=== PATIENT | female | born 1960 | race Caucasian/White ===

== ENCOUNTER 2016-10-10 14:45 | Emergency (ER) | payer BC ==
[2016-10-10] MEDS ORDERED: Albuterol/Ipratropium NEB.SOL* Albuterol 2.5 MG/Ipratropium 0.5 MG 3 ML INH ONE (16:45)
--- NOTE | 2016-10-10 16:50 | UC ---
Respiratory Complaint HPI - HPI Summary HPI Summary: This a 56 yo female with h/o smoking who presents with c/o cough x 2d. She reports associated fever and vomiting. No significant SOB. No abdominal pain or diarrhea. No CP. Assoc chills. She denies history of frequent respiratory infections - History of Current Complaint Chief Complaint: UCGeneralIllness Stated Complaint: COUGH/FEVER/VOMITING - Allergies/Home Medications Allergies/Adverse Reactions: Allergies Allergy/AdvReac Type Severity Reaction Status Date / Time Tomato Allergy Hives Verified 10/10/16 15:41 Home Medications: Home Medications Homeopathic Products [Cold Remedy] 1 tab PO Q6H PRN 10/10/16 [History Confirmed 10/10/16] Throat Lozenges [Menthol Cough Drops] 5 mg MT DAILY PRN 10/10/16 [History Confirmed 10/10/16] PMH/Surg Hx/FS Hx/Imm Hx Previously Healthy: Yes - Surgical History Surgical History: Yes Surgery Procedure, Year, and Place: Hysterectomy - Family History Known Family History: Positive: None - Social History Alcohol Use: Occasionally Substance Use Type: None Smoking Status (MU): Current Every Day Smoker Type: Cigarettes Amount Used/How Often: 1 PPD Review of Systems Constitutional: Fever, Chills, Fatigue Skin: Negative Eyes: Negative ENT: Sore Throat Respiratory: Cough Cardiovascular: Negative Gastrointestinal: Vomiting Genitourinary: Negative Motor: Negative Neurovascular: Negative Musculoskeletal: Negative Neurological: Negative All Other Systems Reviewed And Are Negative: Yes Physical Exam Triage Information Reviewed: Yes Appearance: Ill-Appearing Vital Signs: Initial Vital Signs Temp 99.8 F 10/10/16 15:34 Pulse 94 10/10/16 15:34 Resp 18 10/10/16 15:34 BP 144/75 10/10/16 15:34 Pulse Ox 95 10/10/16 15:34 Vital Signs Reviewed: Yes ENT: Positive: Normal ENT inspection Neck: Positive: Supple, Nontender, No Lymphadenopathy Respiratory: Positive: Rhonchi, Wheezing. Negative: Crackles Cardiovascular Exam: Normal Cardiovascular: Positive: RRR, No Murmur Abdomen Description: Positive: Nontender, Soft Bowel Sounds: Positive: Present Neurological: Positive: Alert UC Diagnostic Evaluation - Laboratory O2 Sat by Pulse Oximetry: 95 Diagnostic Studies Comment: XR chest - NAD. Rapid influenza - pos influenza A Re-Evaluation - Re-Evaluation First Eval Re-Evaluation Time: 18:00 Change: Improved Comment: repeat lung exam is greatly improved after DuoNeb Respiratory Course/Dx - Course Course Of Treatment: This is a 56 yo female smoker who presented with a 3d h/o cough, fever and vomiting with significant wheeze on lung exam. Influenza testing positive. Recommend treatment with a steroid taper, prn albuterol, Tamiflu and prn Zofran - Differential Dx/Diagnosis Differential Diagnosis/HQI/PQRI: Asthma, Bronchitis, Influenza, Sinusitis Provider Diagnoses: 1. Influenza. 2. Suspect COPD exacerbation Discharge - Discharge Plan Condition: Stable Disposition: HOME Prescriptions: Albuterol Sulfate [Proair Respiclick] 2 puff IN Q4H PRN #1 inh PRN Reason: cough/sob Methylprednisolone [Medrol Dosepak 4 MG*] 4 mg PO .SEE GEOVANI INSTRUCTION #1 geovani Ondansetron ODT TAB* [Zofran 4 MG Odt TAB*] 4 mg PO Q6H PRN #20 tab.odt PRN Reason: Nausea/Vomiting Oseltamivir CAP* [Tamiflu CAP*] 75 mg PO BID #10 cap Patient Education Materials: Influenza (ED) Forms: *Work Release Referrals: No Primary Care Phys,NOPCP [Primary Care Provider] - Additional Instructions: Activity: As tolerated Instructions: 1. Please take medications as prescribed 2. Continue to stay smoke free!
[2016-10-10] MEDS ORDERED: Ondansetron TAB* 4 MG PO ONE (17:04)
[2016-10-10] MEDS ORDERED: Ondansetron ODT TAB* 4 MG PO ONE ×2 (17:10→18:07)
--- NOTE | 2016-10-10 17:54 | RAD ---
Indication: Cough, wheezing. 2 views of the chest including dual energy PA views demonstrate no mediastinal shift. Heart is of normal size and configuration. Lung armenta are clear. No evidence of alveolar consolidation is noted. IMPRESSION: No active cardiopulmonary disease is noted.
[2016-10-10 18:08] VITALS: BP 134/78
== END 2016-10-10 18:19 | disposition home or self-care (01) ==
LOC: UCCORT 14:45
DX: J11.1 Influenza due to unidentified influenza virus with other respiratory manifestations (principal); F17.210 Nicotine dependence, cigarettes, uncomplicated
CPT/HCPCS: 71020; 87502; 99213; A9270-GY; G0463

== ENCOUNTER 2019-09-24 12:15 | Emergency (ER) | payer BC ==
[2019-09-24 14:36] VITALS: BP 173/94
--- NOTE | 2019-09-24 15:21 | UC ---
Skin Complaint HPI - HPI Summary HPI Summary: 59-year-old female presents with onset of a painful, blistered rash to her left lower lip that started 3 days ago. Describes the pain as a burning sensation that radiates up along her lower jaw. Reports she had a similar episode previously and was diagnosed with shingles. Denies fever, chills, facial swelling, dental pain, or trismus. - History of Current Complaint Chief Complaint: UCSkin Time Seen by Provider: 09/24/19 15:06 Stated Complaint: SKIN CONCERN AROUND MOUTH Hx Obtained From: Patient Pain Intensity: 7 - Allergy/Home Medications Allergies/Adverse Reactions: Allergies Allergy/AdvReac Type Severity Reaction Status Date / Time tomato Allergy Hives Verified 09/24/19 14:30 Home Medications: Home Medications Naproxen Sodium [Naproxen 220 mg] 220 - 440 mg PO Q12H PRN 09/24/19 [History Confirmed 09/24/19] Valacyclovir HCl [Valacyclovir] 1,000 mg PO TID #21 tablet 09/24/19 [Rx] PMH/Surg Hx/FS Hx/Imm Hx Previously Healthy: Yes - Denies significant PMH - Surgical History Surgical History: Yes Surgery Procedure, Year, and Place: Hysterectomy - Family History Known Family History: Negative: Respiratory Disease - Social History Occupation: Employed Full-time Lives: With Family Alcohol Use: Eight Beers Three Times Weekly Substance Use Type: Marijuana Substance Use Comment - Amount & Last Used: Every Other Day Smoking Status (MU): Heavy Every Day Tobacco Smoker Type: Cigarettes Amount Used/How Often: 1 PPD Length of Time of Smoking/Using Tobacco: Since Age 16 Household Exposure Type: Cigarettes Review of Systems All Other Systems Reviewed And Are Negative: Yes Constitutional: Negative: Fever, Chills Skin: Positive: Rash Eyes: Negative: Blurred Vision, Diplopia, Drainage, Eye Redness, Photophobia ENT: Negative: Sore Throat, Ear Ache, Nasal Discharge, Sinus Congestion, Sinus Pain/Tenderness Respiratory: Negative: Cough Cardiovascular: Positive: Negative Gastrointestinal: Positive: Negative Genitourinary: Positive: Negative Musculoskeletal: Positive: Negative Neurological/Mental Status: Positive: Negative Is Patient Immunocompromised?: No Physical Exam - Summary Physical Exam Summary: GENERAL APPEARANCE: Well developed, well nourished, alert and cooperative, and appears to be in no acute distress. EYES: Conjunctiva clear. No drainage. EARS: External auditory canals and tympanic membranes clear, hearing grossly intact. NOSE: No nasal discharge. THROAT: Pharynx normal. No tonsilar inflammation, swelling, exudate, or lesions. Uvula midline. NECK: Neck supple, non-tender without lymphadenopathy. CARDIAC: Normal S1 and S2. No S3, S4 or murmurs. Rhythm is regular. There is no peripheral edema, cyanosis or pallor. Extremities are warm and well perfused. Capillary refill is less than 2 seconds. Peripheral pulses intact. LUNGS: Clear to auscultation without rales, rhonchi, wheezing or diminished breath sounds. ABDOMEN: Positive bowel sounds. Soft, nondistended, nontender. No guarding or rebound. No masses or hepatosplenomegally. MUSKULOSKELETAL: ROM intact to all extremities. No joint erythema or tenderness. Normal muscular development. Normal gait. SKIN: Skin normal color, texture and turgor. Vesicular, tender rash to left lower lip and chin with intact blisters. Triage Information Reviewed: Yes Vital Signs: Initial Vital Signs Temp 98.4 F 09/24/19 14:28 Pulse 65 09/24/19 14:28 Resp 18 09/24/19 14:28 BP 173/94 09/24/19 14:28 Pulse Ox 100 09/24/19 14:28 Vital Signs Reviewed: Yes Course/Dx - Course Course Of Treatment: 59-year-old female presents with onset of a painful, blistered rash to her left lower lip that started 3 days ago. Describes the pain as a burning sensation that radiates up along her lower jaw. Reports she had a similar episode previously and was diagnosed with shingles. Denies fever, chills, facial swelling, dental pain, or trismus. Afebrile. Hypertensive otherwise vital signs stable. Patient had a vesicular, tender rash to left lower lip and chin with intact blisters consistent with herpes zoster. Remainder of exam was unremarkable. We'll start the patient on valacyclovir 1000 mg 3 times a day 7 days. She is to follow-up with her primary care provider in 5-7 days if symptoms are not improving. Anticipatory guidance and warning symptoms are reviewed with the patient. Verbalizes understanding and agrees with plan of care. - Differential Diagnoses - Skin Complaint Differential Diagnoses: Cellulitis, Contact Dermatitis, Impetigo, MRSA, Varicella Zoster - Diagnoses Provider Diagnosis: Herpes zoster Discharge ED - Sign-Out/Discharge Documenting (check all that apply): Patient Departure All imaging exams completed and their final reports reviewed: No Studies - Discharge Plan Condition: Stable Disposition: HOME Prescriptions: Valacyclovir HCl [Valacyclovir] 1,000 mg PO TID #21 tablet Patient Education Materials: Shingles (ED) Referrals: No Primary Care Phys,NOPCP [Primary Care Provider] - Additional Instructions: Based on her history and exam I suspect that your rash is a case of shingles. We will start you on an antiviral medication to help slow progression of symptoms and shorten the duration of symptoms. Take valacyclovir 1000 mg 3 times a day for 7 days. Use [id number] ibuprofen (Advil, Motrin) for naproxen (Aleve) according to directions as needed for pain. Be aware that as long as the blisters are draining you are potentially infectious to anyone who has not had chickenpox, has not been vaccinated for chickenpox, women, and anyone with a compromised immune system such as those are chemotherapy. They will need to avoid close contact with you until the blisters haven't completely crusted over. Follow-up with your primary care provider in 5-7 days if symptoms are not improving. Seek immediate medical attention in the emergency room if you develop fever greater than 100.5 F, have redness that rapidly spreads, swelling of the face, you're unable to open and close her mouth, have difficulty swallowing, or any worsening of symptoms. - Billing Disposition and Condition Condition: STABLE Disposition: Home
== END 2019-09-24 15:41 | disposition home or self-care (01) ==
LOC: UCCORT 12:15
DX: B02.9 Zoster without complications (principal); I10 Essential (primary) hypertension; F17.210 Nicotine dependence, cigarettes, uncomplicated; Z91.018 Allergy to other foods
CPT/HCPCS: 99212; G0463